=== PATIENT | male | born 1975 | race Asian ===

== ENCOUNTER 2018-02-16 11:07 | Emergency (ER) | payer SELFPAY ==
[2018-02-16 11:18] VITALS: BP 133/84; PULSE 78; RESP 18; TEMP 36.2; O2SAT 100; BMI 26.6
[2018-02-16 11:31] VITALS: BP 139/92; PULSE 83; RESP 19; O2SAT 96
[2018-02-16] MEDS: ONDANSETRON 4 MG/2 ML INJ IV (11:46)
[2018-02-16] MEDS: SODIUM CHLORIDE 0.9% 1,000 ML 1000 ML IV (11:46)
[2018-02-16 11:51] LABS: BUN Creatinine Ratio 14.4 (6-22); Blood Urea Nitrogen 13 mg/dL (9-20); Calcium 9.5 mg/dL (8.4-10.2); Carbon Dioxide 24 mmol/L (22-32); Chloride 97 mmol/L (98-107); Estimated Glomerular Filt Rate > 60.0 mL/min (>60); Glucose 184 mg/dL (70-100); HEMOLYSIS < 15 (0-50); Potassium 3.1 mmol/L (3.4-5.1); Sodium 140 mmol/L (137-145)
[2018-02-16] MEDS: POTASSIUM CHLORIDE 20 MEQ/15 ML UDC 40 MEQ PO (12:02)
--- NOTE | 2018-02-16 12:03 | ED_ITS ---
HPI - Dizziness General Chief Complaint: Dizziness Stated Complaint: DIZZY, VOMITING Time Seen by Provider: 02/16/18 11:15 Source: patient Mode of arrival: ambulatory Limitations: no limitations History of Present Illness HPI Narrative: 43-year-old nonsmoker healthy male presents with his and a chief complaint of 2 episodes of dizziness precipitated by head motion earlier today. The 2nd of which was associated with nausea and 1 episode of vomiting. He denies any fever or chills. He denies any other vomiting or diarrhea. He has no dietary or medicine change. He denies CP, SOB, recent travel. MD complaint: dizziness Onset (ago): hour(s) Timing: sudden onset Description: room spinning History of similar episodes: No History of trauma: No Severity: moderate Relieving factors: remaining still Exacerbating factors: movement Associated symptoms: nausea and vomiting Related Data Home Medications Medication Instructions Recorded Confirmed losartan 50 mg PO DAILY 02/16/18 02/16/18 Previous Rx's Medication Instructions Recorded meclizine 25 mg PO BID-TID PRN #14 tab 02/16/18 ondansetron 4 mg PO TID-QID PRN #10 tab 02/16/18 potassium chloride 20 meq PO DAILY #7 tab 02/16/18 Allergies Allergy/AdvReac Type Severity Reaction Status Date / Time No Known Drug Allergies Allergy Verified 02/16/18 11:40 Review of Systems Review of Systems All systems reviewed & are unremarkable except as noted in HPI and below Constitutional Denies chills, Denies fever(s), Denies lethargy and Denies weakness Eyes Denies change in vision, Denies eye discharge, Denies irritation and Denies loss of vision ENT Ears, Nose, Mouth, and Throat: Denies change in voice, Denies neck pain and Denies sore throat Cardiovascular Denies chest pain, Denies irregular heart rhythm, Denies lightheadedness, Denies palpitations, Denies dyspnea, Denies dyspnea on exertion and Denies orthopnea Respiratory Denies cough, Denies dyspnea, Denies dyspnea on exertion and Denies wheezing Gastrointestinal Gastrointestinal: Denies abdominal pain, Denies change in bowel habits, Denies diarrhea, Reports nausea and Reports vomiting Genitourinary Denies hematuria, Denies flank pain, Denies urinary incontinence and Denies urinary urgency Musculoskeletal Denies neck pain Integumentary/Breasts Denies pruritus, Denies erythema, Denies rash and Denies wounds Neurologic Denies confusion, Denies loss of vision and Denies weakness Psychiatric Denies anxiety, Denies confusion, Denies depression, Denies homicidal ideation and Denies suicidal ideation Endocrine Denies palpitations Hematologic/Lymphatic Denies easy bruising Allergic/Immunologic Denies wheezing [facility] Social History Smoking Status: Never smoker Exam Narrative Exam Narrative: GENERAL: This is a well-nourished, well-developed patient, in mild distress. HEAD: Atraumatic. Normocephalic. No temporal or scalp tenderness. EYES: Pupils equal round and reactive. Extraocular motions intact. No scleral icterus. No injection or drainage. ENT: Nose without bleeding, purulent drainage or septal hematoma. Throat without erythema, tonsillar hypertrophy or exudate. Uvula midline. Airway patent. NECK: Trachea midline. No JVD or lymphadenopathy. Supple, nontender, no meningeal signs. CARDIOVASCULAR: Regular rate and rhythm without murmurs, gallops, or rubs. RESPIRATORY: Clear to auscultation. Breath sounds equal bilaterally. No wheezes , rales, or rhonchi. GASTROINTESTINAL: Abdomen soft, non-tender, nondistended. No hepato-splenomegaly , or palpable masses. No guarding. EXTREMITIES: No clubbing, cyanosis, or edema. No joint tenderness, effusion, or edema noted. BACK: Nontender without deformity or crepitance. No flank tenderness. NEURO: AOx3. SKIN: No rash or erythema. Initial Vital Signs Initial Vital Signs: Vital Signs Temperature 97.2 F L 02/16/18 11:18 Pulse Rate 78 02/16/18 11:18 Respiratory Rate 18 02/16/18 11:18 Blood Pressure 133/84 02/16/18 11:18 Pulse Oximetry 100 02/16/18 11:18 Course Orders Ordered: ED Orders 02/16/18 11:25 Basic Metabolic Panel Stat Complete Blood Count AUTO DIFF Stat Discontinued Medications Sodium Chloride (Normal Saline 0.9%) 1,000 mls @ 1,000 mls/hr IV BOLUS ONE Stop: 02/16/18 12:39 Last Infusion: 02/16/18 13:05 Dose: 0 mls/hr Admin: 02/16/18 11:46 Dose: 1,000 mls/hr Ondansetron HCl (Zofran) 4 mg IV Q4HR PRN PRN Reason: Nausea And Vomiting Last Admin: 02/16/18 11:46 Dose: 4 mg Potassium Chloride (Potassium Chloride) 40 meq PO NOW ONE Stop: 02/16/18 11:57 Last Admin: 02/16/18 12:02 Dose: 40 meq Vital Signs - 8 hr 02/16/18 11:18 02/16/18 11:31 02/16/18 13:05 Temperature 97.2 F L Pulse Rate 78 83 89 Respiratory Rate 18 19 22 Blood Pressure 133/84 Blood Pressure [Left Arm] 139/92 H 126/88 Pulse Oximetry 100 96 100 02/16/18 13:32 Temperature Pulse Rate 87 Respiratory Rate 18 Blood Pressure 126/88 Blood Pressure [Left Arm] Pulse Oximetry 99 MDM - Dizziness Differential Diagnosis Likely benign paroxysmal positional vertigo, orthostatic hypotension, vertebral basilar insufficiency, cerebrovascular accident, acute vestibular neuronitis and transient cerebral ischemia Medical Records Attestation: I reviewed the patient's medical records. Lab Data Attestation: I reviewed the patient's lab results. Result diagrams: 02/16/18 11:25 02/16/18 11:25 Lab Results 02/16/18 02/16/18 Range/Units 11:25 11:25 WBC 8.7 (4.5-11.0) X10^3/uL RBC 5.55 (4.5-5.9) X10^6/uL Hgb 17.0 (13.5-17.5) g/dL Hct 50.2 (41-53) % MCV 90.6 (80-100) fL MCH 30.7 (26-34) PG MCHC 33.9 (30-36) % RDW 12.7 (11.6-14.8) % Plt Count 292 (150-400) X10^3/uL Neut % (Auto) 71.1 (50-75) % Lymph % (Auto) 19.5 L (25-40) % [place] % (Auto) 7.1 (3-14) % Eos % (Auto) 1.9 L (2-4) % Baso % (Auto) 0.4 (0-2) % Neut # (Auto) 6200 H (9105-1245) /uL Sodium 140 (137-145) mmol/L Potassium 3.1 L (3.4-5.1) mmol/L Chloride 97 L (98-107) mmol/L Carbon Dioxide 24 (22-32) mmol/L BUN 13 (9-20) mg/dL Creatinine 0.90 (0.66-1.25) mg/dL Estimated GFR > 60.0 (>60) mL/min BUN/Creatinine Ratio 14.4 (6-22) Glucose 184 H (70-100) mg/dL Calcium 9.5 (8.4-10.2) mg/dL Urine Dip Bedside Urine Glucose Negative Bedside Urine Bilirubin - Negative Bedside Urine Ketone - Negative Urine Specific [place] 1.015 Bedside Urine Occult Blood - Negative Bedside Urine pH 6.5 Bedside Urine Protein - Negative Bedside Urine Urobilinogen - Negative Bedside Urine Nitrite - Negative Bedside Urine Leukocytes - Negative Esterase ECG Data Attestation: I personally reviewed and interpreted this ECG as follows: Prior ECG tracings: not available for review Interpretation: EKG is normal sinus rhythm rate [ 70s] and free of any signs of ischemia or ectopy. No ST segmental elevation or depression. No T wave inversions Discharge Plan Departure Patient Disposition: Home Clinical Impression: Dizziness, Acute hypokalemia Discharge Date/Time: 02/16/18 13:33 Interventions: ED Discharge Assessment Last Done: 02/16/18 13:32 Instructions: DI for Hypokalemia Activity Restrictions/Additional Instructions: *You have been diagnosed with [ dizziness, hypokalemia] *What to do: *Take medications as directed *Follow up with your primary care provider in 2-3 days, call for an appointment. Let them know you were seen in the Emergency Department and that we ask that you be seen in follow up *Return to ER if you should have any new, worsening or concerning symptoms , such Prescriptions: New meclizine 25 mg tablet 25 mg PO BID-TID PRN (Reason: dizziness) Qty: 14 RF: 0 ondansetron 4 mg tablet,disintegrating 4 mg PO TID-QID PRN (Reason: nausea and vomiting) Qty: 10 RF: 0 potassium chloride 20 mEq tablet extended release 20 meq PO DAILY Qty: 7 RF: 0 No Action losartan 50 mg Tablet 50 mg PO DAILY RF: 0 Stand Alone Forms: Work Release Note
[2018-02-16 12:53] LABS: Add Manual Diff / Slide Review NO; Basophils Percent Auto 0.4 % (0-2); Eosinophils Percent Auto 1.9 % (2-4); Hematocrit 50.2 % (41-53); Lymphocytes Percent Auto 19.5 % (25-40); Mean Corpuscular HGB Conc 33.9 % (30-36); Mean Corpuscular Hemoglobin 30.7 PG (26-34); Mean Corpuscular Volume 90.6 fL (80-100); Monocytes Percent Auto 7.1 % (3-14); Neutrophils Absolute Auto 6200 /uL (3000-5900); Neutrophils Percent Auto 71.1 % (50-75); Platelet Count 292 X10^3/uL (150-400); Red Blood Cell Count 5.55 X10^6/uL (4.5-5.9); Red Cell Distribution Width 12.7 % (11.6-14.8); White Blood Cell Count 8.7 X10^3/uL (4.5-11.0)
[2018-02-16 13:05] VITALS: BP 126/88; PULSE 89; RESP 22; O2SAT 100
[2018-02-16 13:32] VITALS: BP 126/88; PULSE 87; RESP 18; O2SAT 99
== END 2018-02-16 13:33 | disposition home or self-care (01) ==
PROVIDERS: Emergency Provider Emergency Medicine
DX: E87.6 Hypokalemia (principal)
CPT/HCPCS: 36591; 80048; 81003; 85025; 93005; 93010; 96361; 96374; 99283; 99284; J2405

== ENCOUNTER → 2021-02-23 14:37 | Outpatient (CLI) | payer OTHER, SELFPAY ==
[2021-02-23 15:01] LABS: COVID19 -Nasal RAPID Negative (Negative)
== END ==
PROVIDERS: PCP Physician Assistant; Visit Provider Physician Assistant
DX: Z20.822 Contact with and (suspected) exposure to COVID-19 (principal); R05.9 Cough, unspecified
CPT/HCPCS: 87635

== ENCOUNTER 2021-09-24 23:17 | Emergency (ER) | payer OTHER, MEDICAID, SELFPAY ==
[2021-09-24 23:30] VITALS: BP 146/104; PULSE 80; RESP 18; TEMP 36.4; O2SAT 100; BMI 27.4
[2021-09-25 01:06] LABS: Add Manual Diff / Slide Review NO; Basophils Absolute Auto 0 /uL (0-100); Basophils Percent Auto 0.3 % (0-2); Eosinophils Absolute Auto 300 /uL (0-450); Eosinophils Percent Auto 2.3 % (2-4); Hematocrit 44.5 % (41-53); Hemoglobin 15.3 g/dL (13.5-17.5); Lymphocytes Absolute Auto 1600 /uL (1100-4500); Lymphocytes Percent Auto 13.3 % (25-40); Mean Corpuscular HGB Conc 34.5 % (30-36); Mean Corpuscular Hemoglobin 30.8 PG (26-34); Mean Corpuscular Volume 89.3 fL (80-100); Monocytes Absolute Auto 1000 /uL (0-900); Monocytes Percent Auto 8.1 % (3-14); Neutrophils Absolute Auto 9400 /uL (1500-7000); Platelet Count 252 X10^3/uL (150-400); Red Blood Cell Count 4.98 X10^6/uL (4.5-5.9); Red Cell Distribution Width 12.8 % (11.6-14.8); White Blood Cell Count 12.3 X10^3/uL (4.5-11.0)
[2021-09-25 01:12] LABS: Alanine Aminotransferase 19 IU/L (<50); Albumin 4.4 g/dL (3.5-5.0); Albumin Globulin Ratio 1.2 (1.0-2.8); Alkaline Phosphatase 63 U/L (38-126); Aspartate Aminotransferase 33 IU/L (17-59); BUN Creatinine Ratio 17.3 (6-22); Bilirubin Total 0.9 mg/dL (0.2-1.3); Blood Urea Nitrogen 13 mg/dL (9-20); Calcium 8.8 mg/dL (8.4-10.2); Carbon Dioxide 28 mmol/L (22-32); Chloride 100 mmol/L (98-107); Estimated Glomerular Filt Rate > 60 mL/min (>60); Globulin 3.8 g/dL (1.7-4.1); Glucose 121 mg/dL (70-100); HEMOLYSIS < 15 (0-50); Lipase 416 U/L (23-300); Potassium 3.4 mmol/L (3.4-5.1); Sodium 137 mmol/L (137-145); Total Protein 8.2 g/dL (6.3-8.2)
--- NOTE | 2021-09-25 01:26 | ED_ITS ---
HPI - Abdominal Pain General Chief Complaint: Abdominal Pain Stated Complaint: abd pain, d/v Time Seen by Provider: 09/25/21 01:10 Source: patient Mode of arrival: Ambulatory Limitations: no limitations History of Present Illness HPI narrative: This is a 46-year-old male with history of hypertension, prior cholecystectomy. Patient states he had some fried rice that he thought he making him sick. Patient states this morning he started having vomiting he had emesis at lunch as well as at dinner. He is had several loose stools throughout the day but no black or bloody stools. He is had epigastric abdominal discomfort. He states it does not feel like when he had his gallbladder out. He has had a little bit of lower back discomfort. Patient denies any dysuria urgency or frequency. He is accompanied by his . Related Data Previous Rx's Medication Instructions Recorded meclizine 25 mg tablet 25 mg PO BID-TID PRN dizziness #14 02/16/18 tabs ondansetron 4 mg disintegrating 4 mg PO TID-QID PRN nausea and 02/16/18 tablet vomiting #10 tabs losartan 50 mg-hydrochlorothiazide 1 tab PO BID #180 tabs 12/14/18 12.5 mg tablet Allergies Allergy/AdvReac Type Severity Reaction Status Date / Time No Known Drug Allergies Allergy Verified 09/24/21 23:30 Review of Systems Review of Systems ROS Unobtainable: All systems reviewed & are unremarkable except as noted in HPI and below Patient History Surgical History Anesthesia History of cholecystectomy (~06/2011) Family History Mother Hypertension Social History Smoking Status: Never smoker second hand exposure: No alcohol intake: current (occasionally) substance use type: does not use Smoking Status: Never smoker alcohol intake frequency: holidays/special occasions only Substance Use Type: does not use Exam Narrative Exam Narrative: GENERAL: Alert and oriented x three, well-nourished male in mild distress. HEENT: Head normocephalic, atraumatic, EOMI, pupils reactive, face symmetric, moist mucous membranes NECK: Supple, full range of motion CARDIOVASCULAR: Regular rate and rhythm without murmurs, rubs or gallops. RESPIRATORY: Breath sounds equal bilaterally, no wheezes rales or rhonchi. ABDOMEN: Soft, nontender. Normoactive bowel sounds all 4 quadrants. No guarding or rebound, rigidity, no mass : No CVA tenderness EXTREMITIES: Normal range of motion, no clubbing or edema. Neurovascularly intact NEUROLOGICAL: Cranial nerves II through XII grossly intact. Moving all extremities SKIN: Warm, dry, no petechiae, no rashes or lesions. Initial Vital Signs Initial Vital Signs: Vital Signs Temperature 97.5 F L 09/24/21 23:30 Pulse Rate 80 09/24/21 23:30 Respiratory Rate 18 09/24/21 23:30 Blood Pressure 146/104 H 09/24/21 23:30 Pulse Oximetry 100 09/24/21 23:30 Oxygen Delivery Method 09/24/21 23:30 Course Orders Ordered: ED Orders 09/24/21 23:34 Complete Blood Count AUTO DIFF Stat Comprehensive Metabolic Panel Stat Lipase Stat Discontinued Medications Ondansetron HCl (Ondansetron 4 Mg/2 Ml Inj) 4 mg IV NOW ONE Stop: 09/25/21 01:29 Last Admin: 09/25/21 01:55 Dose: 4 mg Documented By: ELIJAH Ondansetron HCl (Ondansetron 4 Mg Odt Prepack) 1 bottle MISC SEEINSTR ONE Stop: 09/25/21 01:45 Last Admin: 09/25/21 01:55 Dose: 1 bottle Documented By: ELIJAH Vital Signs Vital signs: Vital Signs - 8 hr 09/24/21 23:30 09/25/21 02:17 Temperature 97.5 F L Pulse Rate 80 87 Respiratory Rate 18 Blood Pressure 146/104 H 135/99 H Pulse Oximetry 100 98 Oxygen Delivery Method Room Air Room Air MDM - Abdominal Pain Lab Data Result diagrams: 09/25/21 00:46 09/25/21 00:46 Labs: Lab Results 09/25/21 09/25/21 Range/Units 00:46 00:46 WBC 12.3 H (4.5-11.0) X10^3/uL RBC 4.98 (4.5-5.9) X10^6/uL Hgb 15.3 (13.5-17.5) g/dL Hct 44.5 (41-53) % MCV 89.3 (80-100) fL MCH 30.8 (26-34) PG MCHC 34.5 (30-36) % RDW 12.8 (11.6-14.8) % Plt Count 252 (150-400) X10^3/uL Neut % (Auto) 76.0 H (50-75) % Lymph % (Auto) 13.3 L (25-40) % [place] % (Auto) 8.1 (3-14) % Eos % (Auto) 2.3 (2-4) % Baso % (Auto) 0.3 (0-2) % Neut # (Auto) 9400 H (1396-2456) /uL Lymph # (Auto) 1600 (4995-3565) /uL [place] # (Auto) 1000 H (0-900) /uL Eos # (Auto) 300 (0-450) /uL Baso # (Auto) 0 (0-100) /uL Sodium 137 (137-145) mmol/L Potassium 3.4 (3.4-5.1) mmol/L Chloride 100 (98-107) mmol/L Carbon Dioxide 28 (22-32) mmol/L BUN 13 (9-20) mg/dL Creatinine 0.75 (0.66-1.25) mg/dL Estimated GFR > 60 (>60) mL/min BUN/Creatinine Ratio 17.3 (6-22) Glucose 121 H (70-100) mg/dL Calcium 8.8 (8.4-10.2) mg/dL Total Bilirubin 0.9 (0.2-1.3) mg/dL AST 33 (17-59) IU/L ALT 19 (<50) IU/L Alkaline Phosphatase 63 (38-126) U/L Total Protein 8.2 (6.3-8.2) g/dL Albumin 4.4 (3.5-5.0) g/dL Globulin 3.8 (1.7-4.1) g/dL Albumin/Globulin Ratio 1.2 (1.0-2.8) Lipase 416 H (23-300) U/L Point of care testing: Urine Dip Bedside Urine Glucose Negative Bedside Urine Bilirubin - Negative Bedside Urine Ketone - Negative Urine Specific [place] 1.015 Bedside Urine Occult Blood - Negative Bedside Urine pH 6.5 Bedside Urine Protein - Negative Bedside Urine Urobilinogen - Negative Bedside Urine Nitrite - Negative Bedside Urine Leukocytes - Negative Esterase MDM Narrative Medical decision making narrative: This is a 46-year-old male with history of hypertension who suspect he had some rice that have been out the night before, he put it in the Fridge after several hours and then ate this morning developed vomiting afterwards throughout the day. He is had several diarrhea like stools as well some epigastric discomfort. Patient has slightly elevated lipase, slightly elevated white count, he is afeb rile, no acute kidney changes or LFT changes. Patient has a benign abdominal exam plan for watchful waiting, Zofran prepack and patient to return if worsening symptoms. Did discuss possibility of COVID and patient plan to perform COVID swab at home in the next 24 hours if symptoms are persisting. Discharge Plan Departure Patient Disposition: Home Clinical Impression: Nausea & vomiting, Abdominal pain Instructions: DI for Vomiting -- Adult Activity Restrictions/Additional Instructions: Please follow-up if you are having persistent symptoms with increasing abdominal pain over the next 24-48 hours. I would recommend taking a covid test tomorrow or the next day if symptoms are persisting. Please take Zofran 1 tablet every 6 hours as needed for nausea. Please return for new fevers, persistent vomiting, black or bloody stools, rapidly worsening abdominal, back or flank pain or other new or concerning symptoms. Prescriptions: No Action losartan-hydrochlorothiazide 50-12.5 mg tablet 1 tab PO BID Qty: 180 1RF meclizine 25 mg tablet 25 mg PO BID-TID PRN (Reason: dizziness) Qty: 14 0RF ondansetron 4 mg tablet,disintegrating 4 mg PO TID-QID PRN (Reason: nausea and vomiting) Qty: 10 0RF Referrals: Candie Kennedy PA-C [Primary Care Provider] - Stand Alone Forms: Work Release Note Visit Report Forms: Patient Portal/API
[2021-09-25] MEDS: ONDANSETRON 4 MG/2 ML INJ IV (01:55)
[2021-09-25] MEDS: ONDANSETRON 4 MG ODT PREPACK 1 BOTTLE MISC (01:55)
[2021-09-25 02:17] VITALS: BP 135/99; PULSE 87; O2SAT 98
== END 2021-09-25 02:18 | disposition home or self-care (01) ==
PROVIDERS: Emergency Provider Emergency Medicine; PCP Physician Assistant
DX: R11.2 Nausea with vomiting, unspecified (principal); R10.13 Epigastric pain
CPT/HCPCS: 36415; 80053; 81003; 83690; 85025; 96374; 99284; J2405